=== PATIENT | male | born 1995 | race Caucasian/White ===

== ENCOUNTER 2017-01-01 18:31 | Emergency (ER) | payer OTHER ==
--- NOTE | 2017-01-01 19:26 | ED CLINICAL REPORT ---
Clinical Report - Physicians/Mid Levels [facility] [address] [place] [address] 01/01/2017 18:31 Patient: TEE DOWLING Time Seen: 1850; initial patient contact, initial documentation, patient care assumed. Arrived- By private vehicle. Historian- patient and father. HISTORY OF PRESENT ILLNESS Chief Complaint: COUGH. The illness is described as moderate. The patient has had a cough. No sputum production, difficulty breathing, chest discomfort or pain or fever. No muscle aches. Additional history - No known contact with a sick individual. Similar symptoms previously: None. Recent medical care: The patient was seen recently in a clinic. ( went to on 12/30 for same thing, seen by Risa Carcamo OVEN PRESS TENDER, dx bronchitis, given rx augmentin, inhaler, sudafed, and dexamethasone, says he is still coughing was coughing up stuff, but now it is dry cough, worse at night, no f/u, took nyquil one night didn't help). REVIEW OF SYSTEMS No vomiting, diarrhea or abdominal pain. All systems otherwise negative, except as recorded above. PAST HISTORY See nurses notes. PROBLEMS: Anxiety Reaction. Sunburn. Tetanus Status. Immunizations. --18:44 Suraj Faye R.N. ADDITIONAL SURGERIES: Shoulder Surgery. --18:44 Suraj Faye R.N. SOCIAL HISTORY Light tobacco smoker. Occasional alcohol use. History of heavy drug use: marijuana. Second-hand smoke exposure. No recent travel. Is a local resident. He lives with parent(s). FAMILY HISTORY Negative. ADDITIONAL NOTES The nursing notes have been reviewed with agreement regarding the chief complaint, HPI, ROS, PMH and patient medications and allergies. PHYSICAL EXAM Vital Signs: 01/01/2017 18:41 BP: 125/77. HR: 102. RR: 20. O2 saturation: 100%. Temp: 99.5 F. Pain level now: 3/10. Have been reviewed as normal and appear to be correct. Appearance: Alert. No acute distress. Eyes: Pupils equal, round and reactive to light. Eyes normal inspection. ENT: Ears normal. Nose normal. Pharynx normal. Uvula midline. Neck: Normal inspection. Neck supple. CVS: Normal heart rate and rhythm. Heart sounds normal. Pulses normal. Respiratory: No respiratory distress. Breath sounds normal. Abdomen: Soft and nontender. No organomegaly. Back: Normal inspection. Skin: Skin warm and dry. Normal skin color. No rash. Normal skin turgor. Extremities: Extremities exhibit normal ROM. No lower extremity edema. Neuro: Oriented X 3. No motor deficit. No sensory deficit. PROGRESS AND PROCEDURES Patient and father counseled in person regarding the patient's stable condition and diagnosis. Differential Diagnosis: Other possible considerations: allergies, flu, viral illness, ur, bronchitis, sinusitis, pneumonia. Above considerations are based on history and physical exam. Differential diagnosis was discussed with patient and patient's father. Disposition: Discharged home in good and unchanged condition (19:25). Condition: good and stable. CLINICAL IMPRESSION Acute bronchitis associated with bronchospasm. INSTRUCTIONS Alternate Tylenol (Acetaminophen) and Motrin (Ibuprofen) for fever, temperature greater than 101 degrees orally. Take according to label instructions. Drink plenty of fluids for the next 24 hours until better. (over the counter cough suppressant as discussed, continue with current prescriptions as previously directed and discussed). Warnings: GENERAL WARNINGS: Return or contact your physician immediately if your condition worsens or changes unexpectedly, if not improving as expected, or if other problems arise. Specifically return if problem worsens. Follow-up: Follow up with your doctor in about five days as needed. Call for an appointment. Summary of care provided to patient and family. Understanding of the discharge instructions verbalized by patient and parent. (Electronically signed by Cherise Gonzalez A.R.N.P. 01/01/2017 21:14)
--- NOTE | 2017-01-01 19:26 | ED NURSING NOTES ---
Clinical Report - Nurses [facility] [address] [place] [address] 01/01/2017 18:31 Patient: TEE DOWLING TRIAGE Triage time 18:40. Acuity: LEVEL 4. Chief Complaint: COUGH. 18:42 01/01/17. 18:42 01/01/17. Alert. No acute distress. ( Pt was seen 30 December at [facility] and diagnosed with sinusitis. Pt was given a RX of steroids and inhaler. Pt states his coughing is not any better.). SEPSIS SCREEN: Sepsis Screen. Negative (no infection suspected/documented). YESICA COMA SCORE: [place] Coma Scale: 15- eyes open spontaneously (4); best verbal response- oriented x 4 (5); best motor response- obeys commands (6). --18:45 Suraj Faye R.N. 18:41 01/01/17. BP: 125/77. HR: 102. RR: 20. O2 saturation: 100% on room air. Temp: 99.5 F (oral). Pain level now: 12/20. --18:45 Suraj Faye R.N. Weight: 90.7 kg. Height/Length: 71 inches. BMI: 27.9. Growth Chart Percentile: Weight: 92.8%. Height/Length: 69.5%. --18:42 Suraj Faye R.N. Medications Augmentin Oral (Tablet 875-125 mg) 1 tablet, 2x a day. --18:47 Suraj Faye R.N. Dexamethasone Oral 4 mg, daily. --18:48 Suraj Faye R.N. Sudafed 12 Hour Oral 120mg, every 12 hours. --18:48 Suraj Faye R.N. Ventolin HFA Inhalation, as needed. --18:48 Suraj Faye R.N. The following entry was struck by Suraj Faye R.N., 18:47 (01/01/17) Reason - other. <<STRICKEN ENTRY-- None. --18:43 Suraj Faye R.N. --END STRIKE>>. Medication/allergy information source: the patient. --18:45 Suraj Faye R.N. Allergies Vicodin=GI upset. --18:43 Suraj Faye R.N. History Arrived by private vehicle. Historian: patient. Accompanied by family. Primary physician (HANDY HAIDER). 18:42 01/01/17. ( Started December 27). He has had a cough. Treatment WIRE SAWYER: None. PAST MEDICAL HX: Immunizations not up to date. SOCIAL HX: Smoker- current status unknown. Occasional alcohol use. History of occasional drug use: marijuana. Is a recovering addict. No infectious disease exposure. ABUSE ASSESSMENT: No report of abuse. FALL RISK ASSESSMENT: Fall risk assessment completed. No fall risk identified. NUTRITIONAL RISK ASSESSMENT: The nutritional risk assessment revealed no deficiencies. FUNCTIONAL ASSESSMENT: Functional assessment: no impairments noted. LEARNING NEEDS ASSESSMENT: The learning needs assessment revealed no barriers. SKIN INTEGRITY ASSESSMENT: Skin integrity risk assessment completed. No skin integrity risk identified. --18:45 Suraj Faye R.N. PROBLEMS: Anxiety Reaction. Sunburn. Tetanus Status. Immunizations. --18:44 Suraj Faye R.N. ADDITIONAL SURGERIES: Shoulder Surgery. --18:44 Suraj Faye R.N. Assessment 18:42 01/01/17. --18:45 Suraj Faye R.N. Interventions 18:42 01/01/17. 18:42 01/01/17. ID and allergy band on patient. To treatment room. --18:45 Suraj Faye R.N. PHYSICAL ASSESSMENT 18:45 01/01/17. Ambulatory to room. GENERAL / NEURO / PSYCH: Alert. Oriented X 4. RESPIRATORY: Respirations not labored. Nonproductive cough. SKIN: Skin is warm and dry. --18:45 Suraj Faye R.N. NURSING PROGRESS NOTES 18:46 01/01/17. Two patient identifiers checked. Call light placed in reach. Side rails up x 2. Bed placed in lowest position. Brakes of bed on. --18:46 Suraj Faye R.N. 18:46 01/01/17. The plan of care for this patient has been created. Patient gowned. Head of bed elevated. --18:46 Suraj Faye R.N. 18:46 01/01/17. Patient ready for evaluation- chart flagged and notification provided. --18:46 Suraj Faye R.N. 19:17 01/01/17. Care transferred and report given. --19:17 Suraj Faye R.N. ( report received from Suraj Reyes RN). --19:17 José Miguel Quintero R.N. DISPOSITION / DISCHARGE Departure time: 19:53. No learning barriers present. Discharge instructions provided and reviewed with the patient. Reviewed warnings. Treatments reviewed. Reviewed referrals for followup. Patient verbalized understanding. Written instructions provided in Welsh. The patient was discharged home and unaccompanied at time of discharge. He left the Emergency Department ambulatory and via private vehicle. Patient driving. --19:53 José Miguel Quintero R.N. 19:53 01/01/17. HR: 98. O2 saturation: 96% on room air. --19:53 José Miguel Quintero R.N. Condition at departure: stable. --19:54 José Miguel Quintero R.N. Locked/Released at 01/01/2017 19:54 by José Miguel Quintero R.N.
--- NOTE | 2017-01-01 19:26 | ED NURSING NOTES ---
Clinical Report - Nurses [facility] [address] [place] [address] 01/01/2017 18:31 Patient: TEE DOWLING TRIAGE Triage time 18:40. Acuity: LEVEL 4. Chief Complaint: COUGH. 18:42 01/01/17. 18:42 01/01/17. Alert. No acute distress. ( Pt was seen 30 December at [facility] and diagnosed with sinusitis. Pt was given a RX of steroids and inhaler. Pt states his coughing is not any better.). SEPSIS SCREEN: Sepsis Screen. Negative (no infection suspected/documented). YESICA COMA SCORE: [place] Coma Scale: 15- eyes open spontaneously (4); best verbal response- oriented x 4 (5); best motor response- obeys commands (6). --18:45 Suraj Faye R.N. 18:41 01/01/17. BP: 125/77. HR: 102. RR: 20. O2 saturation: 100% on room air. Temp: 99.5 F (oral). Pain level now: 12/20. --18:45 Suraj Faye R.N. Weight: 90.7 kg. Height/Length: 71 inches. BMI: 27.9. Growth Chart Percentile: Weight: 92.8%. Height/Length: 69.5%. --18:42 Suraj Faye R.N. Medications Augmentin Oral (Tablet 875-125 mg) 1 tablet, 2x a day. --18:47 Suraj Faye R.N. Dexamethasone Oral 4 mg, daily. --18:48 Suraj Faye R.N. Sudafed 12 Hour Oral 120mg, every 12 hours. --18:48 Suraj Faye R.N. Ventolin HFA Inhalation, as needed. --18:48 Suraj Faye R.N. The following entry was struck by Suraj Faye R.N., 18:47 (01/01/17) Reason - other. <<STRICKEN ENTRY-- None. --18:43 Suraj Faye R.N. --END STRIKE>>. Medication/allergy information source: the patient. --18:45 Suraj Faye R.N. Allergies Vicodin=GI upset. --18:43 Suraj Faye R.N. History Arrived by private vehicle. Historian: patient. Accompanied by family. Primary physician (HANDY HAIDER). 18:42 01/01/17. ( Started December 27). He has had a cough. Treatment RECORDIST: None. PAST MEDICAL HX: Immunizations not up to date. SOCIAL HX: Smoker- current status unknown. Occasional alcohol use. History of occasional drug use: marijuana. Is a recovering addict. No infectious disease exposure. ABUSE ASSESSMENT: No report of abuse. FALL RISK ASSESSMENT: Fall risk assessment completed. No fall risk identified. NUTRITIONAL RISK ASSESSMENT: The nutritional risk assessment revealed no deficiencies. FUNCTIONAL ASSESSMENT: Functional assessment: no impairments noted. LEARNING NEEDS ASSESSMENT: The learning needs assessment revealed no barriers. SKIN INTEGRITY ASSESSMENT: Skin integrity risk assessment completed. No skin integrity risk identified. --18:45 Suraj Faye R.N. PROBLEMS: Anxiety Reaction. Sunburn. Tetanus Status. Immunizations. --18:44 Suraj Faye R.N. ADDITIONAL SURGERIES: Shoulder Surgery. --18:44 Suraj Faye R.N. Assessment 18:42 01/01/17. --18:45 Suraj Faye R.N. Interventions 18:42 01/01/17. 18:42 01/01/17. ID and allergy band on patient. To treatment room. --18:45 Suraj Faye R.N. PHYSICAL ASSESSMENT 18:45 01/01/17. Ambulatory to room. GENERAL / NEURO / PSYCH: Alert. Oriented X 4. RESPIRATORY: Respirations not labored. Nonproductive cough. SKIN: Skin is warm and dry. --18:45 Suraj Faye R.N. NURSING PROGRESS NOTES 18:46 01/01/17. Two patient identifiers checked. Call light placed in reach. Side rails up x 2. Bed placed in lowest position. Brakes of bed on. --18:46 Suraj Faye R.N. 18:46 01/01/17. The plan of care for this patient has been created. Patient gowned. Head of bed elevated. --18:46 Suraj Faye R.N. 18:46 01/01/17. Patient ready for evaluation- chart flagged and notification provided. --18:46 Suraj Faye R.N. 19:17 01/01/17. Care transferred and report given. --19:17 Suraj Faye R.N. ( report received from Suraj Reyes RN). --19:17 José Miguel Quintero R.N. DISPOSITION / DISCHARGE Departure time: 19:53. No learning barriers present. Discharge instructions provided and reviewed with the patient. Reviewed warnings. Treatments reviewed. Reviewed referrals for followup. Patient verbalized understanding. Written instructions provided in Nepali. The patient was discharged home and unaccompanied at time of discharge. He left the Emergency Department ambulatory and via private vehicle. Patient driving. --19:53 José Miguel Quintero R.N. 19:53 01/01/17. HR: 98. O2 saturation: 96% on room air. --19:53 José Miguel Quintero R.N. Condition at departure: stable. --19:54 José Miguel Quintero R.N. Locked/Released at 01/01/2017 19:54 by José Miguel Quintero R.N.
--- NOTE | 2017-01-01 19:26 | ED CLINICAL REPORT ---
Clinical Report - Physicians/Mid Levels [facility] [address] [place] [address] 01/01/2017 18:31 Patient: TEE DOWLING Time Seen: 1850; initial patient contact, initial documentation, patient care assumed. Arrived- By private vehicle. Historian- patient and father. HISTORY OF PRESENT ILLNESS Chief Complaint: COUGH. The illness is described as moderate. The patient has had a cough. No sputum production, difficulty breathing, chest discomfort or pain or fever. No muscle aches. Additional history - No known contact with a sick individual. Similar symptoms previously: None. Recent medical care: The patient was seen recently in a clinic. ( went to on 12/30 for same thing, seen by Risa Carcamo PARACHUTE/COMBATANT DIVER OFFICER, dx bronchitis, given rx augmentin, inhaler, sudafed, and dexamethasone, says he is still coughing was coughing up stuff, but now it is dry cough, worse at night, no f/u, took nyquil one night didn't help). REVIEW OF SYSTEMS No vomiting, diarrhea or abdominal pain. All systems otherwise negative, except as recorded above. PAST HISTORY See nurses notes. PROBLEMS: Anxiety Reaction. Sunburn. Tetanus Status. Immunizations. --18:44 Suraj Faye R.N. ADDITIONAL SURGERIES: Shoulder Surgery. --18:44 Suraj Faye R.N. SOCIAL HISTORY Light tobacco smoker. Occasional alcohol use. History of heavy drug use: marijuana. Second-hand smoke exposure. No recent travel. Is a local resident. He lives with parent(s). FAMILY HISTORY Negative. ADDITIONAL NOTES The nursing notes have been reviewed with agreement regarding the chief complaint, HPI, ROS, PMH and patient medications and allergies. PHYSICAL EXAM Vital Signs: 01/01/2017 18:41 BP: 125/77. HR: 102. RR: 20. O2 saturation: 100%. Temp: 99.5 F. Pain level now: 3/10. Have been reviewed as normal and appear to be correct. Appearance: Alert. No acute distress. Eyes: Pupils equal, round and reactive to light. Eyes normal inspection. ENT: Ears normal. Nose normal. Pharynx normal. Uvula midline. Neck: Normal inspection. Neck supple. CVS: Normal heart rate and rhythm. Heart sounds normal. Pulses normal. Respiratory: No respiratory distress. Breath sounds normal. Abdomen: Soft and nontender. No organomegaly. Back: Normal inspection. Skin: Skin warm and dry. Normal skin color. No rash. Normal skin turgor. Extremities: Extremities exhibit normal ROM. No lower extremity edema. Neuro: Oriented X 3. No motor deficit. No sensory deficit. PROGRESS AND PROCEDURES Patient and father counseled in person regarding the patient's stable condition and diagnosis. Differential Diagnosis: Other possible considerations: allergies, flu, viral illness, ur, bronchitis, sinusitis, pneumonia. Above considerations are based on history and physical exam. Differential diagnosis was discussed with patient and patient's father. Disposition: Discharged home in good and unchanged condition (19:25). Condition: good and stable. CLINICAL IMPRESSION Acute bronchitis associated with bronchospasm. INSTRUCTIONS Alternate Tylenol (Acetaminophen) and Motrin (Ibuprofen) for fever, temperature greater than 101 degrees orally. Take according to label instructions. Drink plenty of fluids for the next 24 hours until better. (over the counter cough suppressant as discussed, continue with current prescriptions as previously directed and discussed). Warnings: GENERAL WARNINGS: Return or contact your physician immediately if your condition worsens or changes unexpectedly, if not improving as expected, or if other problems arise. Specifically return if problem worsens. Follow-up: Follow up with your doctor in about five days as needed. Call for an appointment. Summary of care provided to patient and family. Understanding of the discharge instructions verbalized by patient and parent. (Electronically signed by Cherise Gonzalez A.R.N.P. 01/01/2017 21:14)
--- NOTE | 2017-01-01 21:15 | ED MAR SUMMARY ---
..... Medication Administration Record [facility] [address] [place], [place] [id number] Patient: TEE DOWLING Visit ID: [id number] 21y, M Weight: 90.7 kg Height/Length: 71 in BMI: 27.9 ALLERGIES: Vicodin=GI upset
--- NOTE | 2017-01-01 21:15 | ED MAR SUMMARY ---
..... Medication Administration Record [facility] [address] [place], [place] [id number] Patient: TEE DOWLING Visit ID: [id number] 21y, M Weight: 90.7 kg Height/Length: 71 in BMI: 27.9 ALLERGIES: Vicodin=GI upset
--- NOTE | 2017-01-01 21:15 | ED MED RECONCILIATION SUMMARY ---
Patient: TEE DOWLING Medication Reconciliation Report [facility] VisitID: [id number] [address] [place] [address] 21y, M Registration Date/Time: 01/01/2017 Weight: 90.7 kg Height/Length: 71 in. BMI: 27.9 ALLERGIES: Vicodin=GI upset The patient's Home Medications are listed below: THE FOLLOWING MEDICATIONS NEED TO BE RECONCILED: Augmentin Oral (875-125 mg) 1 tablet, 2x a day Dexamethasone Oral 4 mg, daily Sudafed 12 Hour Oral 120mg, every 12 hours Ventolin HFA Inhalation The source(s) of the original Home Medication information: patient The following Medications were given to the patient in the Emergency Department: None. The following Medications were prescribed to the patient: None.
--- NOTE | 2017-01-01 21:15 | ED MED RECONCILIATION SUMMARY ---
Patient: TEE DOWLING Medication Reconciliation Report [facility] VisitID: [id number] [address] [place] [address] 21y, M Registration Date/Time: 01/01/2017 Weight: 90.7 kg Height/Length: 71 in. BMI: 27.9 ALLERGIES: Vicodin=GI upset The patient's Home Medications are listed below: THE FOLLOWING MEDICATIONS NEED TO BE RECONCILED: Augmentin Oral (875-125 mg) 1 tablet, 2x a day Dexamethasone Oral 4 mg, daily Sudafed 12 Hour Oral 120mg, every 12 hours Ventolin HFA Inhalation The source(s) of the original Home Medication information: patient The following Medications were given to the patient in the Emergency Department: None. The following Medications were prescribed to the patient: None.
--- NOTE | 2017-01-01 21:15 | ED DISCHARGE INSTRUCTIONS ---
Patient: TEE DOWLING General Instructions [facility] VisitID: [id number] [place] [address] 21y, M Registration Date/Time: 01/01/2017 Acute bronchitis associated with bronchospasm. INSTRUCTIONS Alternate Tylenol (Acetaminophen) and Motrin (Ibuprofen) for fever, temperature greater than 101 degrees orally. Take according to label instructions. Drink plenty of fluids for the next 24 hours until better. (over the counter cough suppressant as discussed, continue with current prescriptions as previously directed and discussed). Warnings: GENERAL WARNINGS: Return or contact your physician immediately if your condition worsens or changes unexpectedly, if not improving as expected, or if other problems arise. Specifically return if problem worsens. Follow-up: Follow up with your doctor in about five days as needed. Call for an appointment. Summary of care provided to patient and family. Understanding of the discharge instructions verbalized by patient and parent. ADDITIONAL INFORMATION Bronchitis (Adult: Abx Tx) BRONCHITIS is an infection of the air passages (bronchial tubes). It often occurs during the common cold. Symptoms include cough with mucus (phlegm) and low-grade fever. Bronchitis usually lasts 7-14 days. Mild cases can be treated with simple home remedies. More severe infection is treated with an antibiotic. Home Care: If symptoms are severe, rest at home for the first 2-3 days. When you resume activity, don't let yourself get too tired. Do not smoke. Avoid being exposed to the smoke of others. You may use acetaminophen (Tylenol) or ibuprofen (Motrin, Advil) to control fever or pain, unless another medicine was prescribed for this. [NOTE: If you have chronic liver or kidney disease or ever had a stomach ulcer or GI bleeding, talk with your doctor before using these medicines.] Your appetite may be poor, so a light diet is fine. Avoid dehydration by drinking 6-8 glasses of fluids per day (water, soft, drinks, juices, tea, soup, etc.). Extra fluids will help loosen secretions in the lungs. [id number] cough medicines that containdextromethorphan(such as Robitussin DM) and decongestants (Actifed or Sudafed) may help relieve cough and congestion. [NOTE: Do not use decongestants if you have high blood pressure.] Finish all antibiotic medicine, even if you are feeling better after only a few days. Follow Up with your doctor or as directed if you dont start to feel better after three days. [NOTE: If you are age 65 or older, or if you have chronic asthma or COPD, we recommend a PNEUMOCOCCAL VACCINATION every five years and a yearly INFLUENZAVACCINATION (FLU-SHOT) every . Ask your doctor about this. If you had an X-ray, a radiologist will review it. You will be notified of any new findings that may affect your care.] Get Prompt Medical Attention if any of the following occur: Fever over 100.4F (38.0C) for more than three days Trouble breathing, wheezing or pain with breathing Coughing up blood or increased amounts of colored sputum Weakness, drowsiness, headache, facial pain, ear pain or a stiff neck Fever Control (Adult) A fever is a natural reaction of the body to an illness. In most cases, the temperature itself is not harmful. It actually helps the body fight infections. A fever does not need to be treated unless you feel very uncomfortable. Home Care If you feel warm, check your temperature. If you feel very uncomfortable and your temperature is at or higher than 100.4F (38C) oral, you may take acetaminophen (Tylenol) every 4 to 6 hours. If you cant take or keep down oral medicine, ask your pharmacist for Tylenol suppositories, which you can get without a prescription. If the fever does not respond to acetaminophen within 1 hour, take ibuprofen (Advil or Motrin). If this works, keep taking the ibuprofen every 6 to 8 hours. Note: If you have chronic liver or kidney disease or ever had a stomach ulcer or GI bleeding, talk with your doctor before using these medications. If either medication alone does not keep the fever down, you may alternate the two medicines every 3 to 4 hours, only if your healthcare provider has instructed you to do so. For example, take Motrin then wait 3 hours, take Tylenol then wait 3 hours, take Motrin, and so on. Follow your healthcare providers instructions exactly. Clothing: Keep clothing light because excess body heat is lost through the skin. The fever will go up if you wear extra layers or wrap in blankets. Fluids: Fever causes the body to lose water through evaporation. Drink plenty of fluids such as water, juice, clear sodas, nabeel jer, or lemonade. Do not use aspirin in anyone under 18 years of age who is ill with a fever. It can cause severe liver damage. Follow Up with your doctor or as advised by our staff if you do not get better after 48 hours. Get Prompt Medical Attention if any of the following occur: Fever does not get better after taking fever medication Fast or difficult breathing Earache, sinus pain, stiff or painful neck, headache, repeated diarrhea or vomiting You feel unusually irritable, drowsy, or confused A rash appears You feel weak or dizzy, or that you might faint You have been given the following additional information: Bronchitis, Antiobiotic Treatment (Adult) Fever Control (Adult) (Electronically signed by Cherise Gonzalez A.R.N.P. 01/01/2017 21:14)
== END 2017-01-01 19:52 | disposition home or self-care (01) ==
LOC: ED SRH 18:31
DX: J20.9 Acute bronchitis, unspecified (principal); F17.200 Nicotine dependence, unspecified, uncomplicated; Z79.899 Other long term (current) drug therapy; Z79.2 Long term (current) use of antibiotics